=== PATIENT | male | born 1995 | race Caucasian/White ===

== ENCOUNTER 2018-02-09 18:39 | Emergency (ER) | payer OTHER ==
[2018-02-09 18:50] VITALS: BMI 25.1
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
[2018-02-09] MEDS ORDERED: morphine CARPU-JECT 4 MG/1 ML DISP.SYRIN IVPUSH ONE (19:02)
[2018-02-09] MEDS ORDERED: SILVER SULFADIAZINE 1% TOP CREAM 50 GM JAR TP ONE (19:03)
[2018-02-09] MEDS ORDERED: morphine SULFATE 4 MG/ML VIAL ONE (19:03)
[2018-02-09] MEDS ORDERED: DIPHTH,PERTUSS(ACELL),TET VAC 0.5 ML VIAL IM ONE (19:10)
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
[2018-02-09 19:57] VITALS: BP 141/61; PULSE 70; TEMP 98.4
== END 2018-02-09 20:27 | disposition short-term general hospital (02) ==
LOC: JER 18:39
PROC: 2W2FX4Z Dressing of Left Hand using Bandage (ICD-10-PCS; principal; 2018-02-09)
PROC: 2W2EX4Z Dressing of Right Hand using Bandage (ICD-10-PCS; 2018-02-09)
PROC: 3E033NZ Introduction of Analgesics, Hypnotics, Sedatives into Peripheral Vein, Percutaneous Approach (ICD-10-PCS; 2018-02-09)
PROC: 3E0234Z Introduction of Serum, Toxoid and Vaccine into Muscle, Percutaneous Approach (ICD-10-PCS; 2018-02-09)
DX: T23.292A Burn of second degree of multiple sites of left wrist and hand, initial encounter (principal); T23.291A Burn of second degree of multiple sites of right wrist and hand, initial encounter; X10.2XXA Contact with fats and cooking oils, initial encounter; Y93.G3 Activity, cooking and baking; Y92.010 Kitchen of single-family (private) house as the place of occurrence of the external cause; Y99.8 Other external cause status
CPT/HCPCS: 16020; 90471; 96374; 99282-25

== ENCOUNTER 2023-06-12 13:09 | Emergency (ER) | payer OTHER ==
[2023-06-12 13:31] VITALS: BP 122/81; PULSE 97; RESP 18; TEMP 98.1; BMI 27.1
[2023-06-12] MEDS ORDERED: DIPHTH,PERTUSS(ACELL),TET 0.5 ML DISP.SYRIN IM ONE ×2 (13:42→13:53)
[2023-06-12] MEDS ORDERED: IBUPROFEN 600 MG TABLET (FP) PO ONE ×2 (13:46→13:53)
== END 2023-06-12 14:33 | disposition home or self-care (01) ==
LOC: JER 13:09 → JERFT 13:09
PROC: 0HQDXZZ Repair Right Lower Arm Skin, External Approach (ICD-10-PCS; principal; 2023-06-12)
PROC: 3E0234Z Introduction of Serum, Toxoid and Vaccine into Muscle, Percutaneous Approach (ICD-10-PCS; 2023-06-12)
DX: S51.011A Laceration without foreign body of right elbow, initial encounter (principal); W26.8XXA Contact with other sharp object(s), not elsewhere classified, initial encounter; Y99.0 Civilian activity done for income or pay
CPT/HCPCS: 90715; 99282-25

== ENCOUNTER 2023-06-22 08:39 | Emergency (ER) | payer OTHER ==
[2023-06-22 08:44] VITALS: BP 116/70; PULSE 80; RESP 16; TEMP 98.3; BMI 27.9
== END 2023-06-22 08:56 | disposition home or self-care (01) ==
LOC: FER 08:39
DX: Z48.02 Encounter for removal of sutures (principal)
CPT/HCPCS: 99282-25